=== PATIENT | male | born 1990 | race African-American/Black ===

== ENCOUNTER 2023-07-04 14:57 | Emergency (ER) | payer SELFPAY ==
[~2023-07-04] VITALS: Ht 172.7 cm; Wt 74.0 kg
[2023-07-04 15:02] VITALS: O2SAT 99
[2023-07-04 16:18] LABS: BASOPHILS % 0.9 % (0.0-2.0); DIFFERENTIAL COMMENT 0; EOSINOPHILS % 0.2 % (0.0-5.0); HEMATOCRIT. 47.8 % (42.0-52.0); HEMOGLOBIN. 15.5 g/dL (14.0-18.0); LYMPHOCYTES % 29.5 % (20.0-50.0); MEAN CORPUSCULAR HEMOGLOBIN 32.9 pg (28.0-32.0); MEAN CORPUSCULAR HGB CONC 32.4 g/dL (31.0-37.0); MEAN CORPUSCULAR VOLUME 101.3 fL (80.0-94.0); MEAN PLATELET VOLUME 8.1 fl (7.4-10.4); MONOCYTES % 14.3 % (2.0-8.0); NEUTROPHILS % 55.1 % (40.0-76.0); PLATELET 207 x1000/uL (130-400); RED BLOOD CELL COUNT 4.72 mill/uL (4.7-6.1); RED CELL DISTRIBUTION WIDTH 14.3 % (11.6-14.6); WHITE BLOOD COUNT 4.9 x1000/uL (4.5-11.0)
[2023-07-04 16:26] LABS: CHLORIDE 107 mEq/L (98-107); INDEX HEMOLYSI 4 (1-3); INDEX ICTERIC 1 (1-4); INDEX LIPEMIC 1 (1-3); SODIUM 139 mEq/L (136-145)
[2023-07-04 16:34] LABS: ALANINE AMINOTRANSFERASE 16 IU/L (13-61); ALBUMIN 3.9 g/dL (3.4-5.0); ASPARTATE AMINOTRANSFERASE 24 IU/L (15-37); BILIRUBIN TOTAL 0.4 mg/dL (0.1-1.0); CALCIUM 8.4 mg/dL (8.5-10.1); CARBON DIOXIDE 25 mEq/L (21-32); CREATININE 1.1 mg/dL (0.6-1.3); GLUCOSE 78 mg/dL (70-105); PROTEIN TOTAL 7.4 g/dL (6.0-8.3); UREA NITROGEN BLOOD 13 mg/dL (7-21)
[2023-07-04 16:40] LABS: POTASSIUM 4.3 mEq/L (3.5-5.1); TROPONIN I HIGH SENSITIVITY < 4 ng/L (<78)
[2023-07-04 21:30] VITALS: BP 97/58; PULSE 83; RESP 19; TEMP 98
== END 2023-07-04 21:47 | disposition home or self-care (01) ==
LOC: ER 15:04
DX: R07.89 Other chest pain (principal)
CPT/HCPCS: 36415; 71045; 80053; 84484; 85025; 93005; 99285